=== PATIENT | female | born 1940 | race Caucasian/White ===

== ENCOUNTER → 2018-08-01 | Outpatient (CLI) | payer MEDICARE, BC ==
--- NOTE | 2018-08-04 09:35 | RADIOLOGY REPORT (SQ) ---
EXAM DESCRIPTION: MRI LT UPPER EXTREMITY COMBO COMPLETED DATE/TIME: 08/01/2018 12:17 pm REASON FOR STUDY: S42.009S FRACTURE OF UNSPECIFIED PART OF UNSPECIFIED CLAVICLE, SEQUELA S42.009S F RACTURE OF UNSP PART OF UNSPECIFIED CLAVICLE, SEQU COMPARISON: None. TECHNIQUE: Multiplanar imaging of the left clavicle to include T1-weighted, postcontrast T1-weighted , and T2-weighted images. CONTRAST TYPE AND DOSE: 20 mL [place]. RENAL FUNCTION: GFR 43 LIMITATIONS: None. FINDINGS: BONE MARROW: Prolific callus formation associated with the known clavicle fracture. There is a lesion in the humeral head measuring just over 1 cm which is eccentric, dark on T1 and enhances . Not visible on recent plain films. In the presence of negative bone scan in this region, findings are worrisome for myeloma. SOFT TISSUES: No soft tissue mass. OTHER: No other significant finding. IMPRESSION: Pathologic fracture clavicle. 2nd lesion humeral head suspicious for myeloma. COMMENT: Findings were discussed with Dr. Ahmadi on 08/04/2018. TECHNICAL DOCUMENTATION: JOB ID: [id number] [employer]- All Rights Reserved Reading location - IP/workstation name: [email or web address]
== END ==
LOC: RAD 10:58
PROVIDERS: ATTEND Orthopaedic Surgery
DX: S42.009S Fracture of unspecified part of unspecified clavicle, sequela (principal); X58.XXXS Exposure to other specified factors, sequela
CPT/HCPCS: 82565; 73220; A9576